=== PATIENT | male | born 1960 | race Caucasian/White ===

== ENCOUNTER → 2022-11-17 10:59 | Outpatient (CLI) | payer BC, SELFPAY ==
--- NOTE | 2022-11-17 | DI.RAD_ITS ---
Exam(s) XR ELBOW LT COMPLETE EXAM: XR ELBOW LT COMPLETE CLINICAL HISTORY: LT ELBOW PAIN, M25.522,ABSCESS,M71.022,LACERATION,FELL,? BONY INJURU. TECHNIQUE: 2D digital imaging was performed of the left elbow. Three images were obtained. AP, lat eral and oblique views were obtained. COMPARISON: No exams were available for comparison FINDINGS: BONES: There are 3 tiny densities adjacent to the lateral epicondyle. They appear well circumscribed and are likely chronic however acute fracture cannot be entirely excluded. No bony destructive lesi on is seen. JOINTS: The elbow is normally aligned. No joint effusion is seen. SOFT TISSUE: There is soft tissue swelling posteriorly. Subcutaneous gas is noted in the soft tissue s posteriorly. IMPRESSION: 1. Densities adjacent to the lateral elbow joint. The appear mostly well corticated suggesting old i njury, but acute fracture cannot be excluded. If there is continued concern a CT scan should be conf irmed obtained for further evaluation. 2. Swelling and subcutaneous air in the posterior soft tissues. No radiopaque foreign bodies. DATA REPOSITORY: RADIATION DOSE DELIVERED:
== END ==
PROVIDERS: Visit Provider Physician Assistant Medical
DX: M71.022 Abscess of bursa, left elbow; M25.522 Pain in left elbow
CPT/HCPCS: 73080

== ENCOUNTER 2022-11-17 14:14 | Emergency (ER) | payer BC, SELFPAY ==
[2022-11-17 14:35] VITALS: BP 119/80; PULSE 97; RESP 18; TEMP 36.9; O2SAT 98
--- NOTE | 2022-11-17 15:21 | ED.GENADUL_ITS ---
Discharge Plan Disposition Patient Disposition: Home Discharge Details Clinical Impression: Septic bursitis, Cellulitis Primary Care Provider: Unknown,Unknown ED Provider: Thania Mendez Home Meds and New Rx's Prescriptions: New cephalexin 500 mg capsule 500 mg PO Q6H 10 Days Qty: 40 0RF levofloxacin 750 mg tablet 750 mg PO DAILY 10 Days Qty: 10 0RF Continued metformin 500 mg tablet 500 mg PO DAILY venlafaxine 75 mg capsule,extended release 24hr 75 mg PO DAILY pantoprazole 40 mg tablet,delayed release (DR/EC) 40 mg PO DAILY losartan 25 mg tablet 25 mg PO DAILY rosuvastatin 10 mg tablet 10 mg PO DAILY bupropion HCl 150 mg tablet extended release 24 hr 150 mg PO DAILY Discharge Instructions Instructions: Cellulitis (ED) Additional Instructions: Warm compresses You are leaving against our medical recommendation, warm compresses, keep your sling in place during the day and refrain from moving your elbow Change your dressing as it becomes saturated Recheck with orthopedics recommended tomorrow and my recommendation was to admit you to the hospital for IV antibiotics and surgery assessment tomorrow, you have gas in your tissue and this can lead to a very serious infection, her recommendation is that we admit you for observation IV antibiotics, you have declined You are aware that this places you at increased risk for worsening infection, loss of limb and even Please be reevaluated at your earliest ability Referrals: Shane Otero MD [ [facility] STAFF PHYSICIAN] - Medical Decision Making <Shira Cohen NP - Last Filed: 11/17/22 16:34> 62-year-old male presents with a red swollen left elbow. He reports he was fishing on Tuesday he fell cutting his elbow on a rock. He was seen at urgent care prior to arrival and had some pus expressed from the area was sent here for further evaluation. He does have surrounding area of erythema measuring a pproximately 7 cm x 5 cm. He does have some tenderness and warmth there is an open laceration. Past medical history includes diabetes, high cholesterol hypertension he does have a history of a previous surgery with pins in 1974 to that elbow. Spoke with Dr. Tee regarding patient he did have x-rays completed prior to arrival which noted some lateral densities to the lateral epicondyle appear chronic however fracture cannot be entirely excluded. There is also some soft tissue swelling posteriorly and some subcutaneous gas noted. CT imaging ordered, CBC CMP wound culture and antibiotics. Differential diagnosis includes but not limited to septic bursitis, infected laceration, less likely septic joint. However we will give a dose of IV antibiotics due to patient's diabetic status. He has no complaints of fever chills or systemic complaints. Medical Records Medical records reviewed: Yes I reviewed the patient's medical records. Medical records narrative: X-rays from earlier today. <SELIN Wilkinson - Last Filed: 11/17/22 22:14> 62-year-old male presents with a red swollen left elbow. He reports he was fishing on Tuesday he fell cutting his elbow on a rock. He was seen at urgent care prior to arrival and had some pus expressed from the area was sent here for further evaluation. He does have surrounding area of erythema measuring approximately 7 cm x 5 cm. He does have some tenderness and warmth there is an open laceration. Past medical history includes diabetes, high cholesterol hypertension he does have a history of a previous surgery with pins in 1974 to that elbow. Spoke with Dr. Tee regarding patient he did have x-rays completed prior to arrival which noted some lateral densities to the lateral epicondyle appear chronic however fracture cannot be entirely excluded. There is also some soft tissue swelling posteriorly and some subcutaneous gas noted. CT imaging ordered, CBC CMP wound culture and antibiotics. Differential diagnosis includes but not limited to septic bursitis, infected laceration, less likely septic joint However we will give a dose of IV antibiotics due to patient's diabetic status. He has no complaints of fever chills or systemic complaints. HPI <Shira Cohen NP - Last Filed: 11/17/22 16:34> General Mode of arrival: ambulatory . Date/Time Provider Initiated Documentation: 11/17/22 14:18 . Limitations to Documentation: no limitations . Information obtained by: patient, RN notes reviewed and old records reviewed . HPI Narrative: 62-year-old male presents with a red swollen left elbow. He reports he was fish ing on Tuesday he fell cutting his elbow on a rock. He was seen at urgent care prior to arrival and had some pus expressed from the area was sent here for further evaluation. He does have surrounding area of erythema measuring approximately 7 cm x 5 cm. He does have some tenderness and warmth there is an open laceration. Past medical history includes diabetes, high cholesterol hypertension he does have a history of a previous surgery with pins in 1974 to that elbow. Related Data Home Medications Medication Instructions Recorded Confirmed bupropion HCl 150 mg 24 hr tablet, 150 mg PO DAILY 11/17/22 11/17/22 extended release cephalexin 500 mg capsule 500 mg PO Q6H 10 days #40 caps 11/17/22 levofloxacin 750 mg tablet 750 mg PO DAILY 10 days #10 tabs 11/17/22 losartan 25 mg tablet 25 mg PO DAILY 11/17/22 11/17/22 metformin 500 mg tablet 500 mg PO DAILY 11/17/22 11/17/22 pantoprazole 40 mg tablet,delayed 40 mg PO DAILY 11/17/22 11/17/22 release rosuvastatin 10 mg tablet 10 mg PO DAILY 11/17/22 11/17/22 venlafaxine 75 mg capsule,extended 75 mg PO DAILY 11/17/22 11/17/22 release 24 hr Previous Rx's Medication Instructions Recorded cephalexin 500 mg capsule 500 mg PO Q6H 10 days #40 caps 11/17/22 levofloxacin 750 mg tablet 750 mg PO DAILY 10 days #10 tabs 11/17/22 Allergies Allergy/AdvReac Type Severity Reaction Status Date / Time No Known Allergies Allergy Unverified 11/17/22 14:33 General Stated Complaint: Orthopedic JESIKA: 3 Review of Systems <Shira Cohen NP - Last Filed: 11/17/22 16:34> All systems reviewed & are unremarkable except as noted in HPI and below Constitutional Constitutional: Reports as per HPI, Denies body ache(s), Denies chills and Denies fever(s) Musculoskeletal Musculoskeletal: Reports as per HPI, Denies myalgias, Reports arthralgias, Reports joint swelling and Reports limited range of motion Integumentary/Breasts Skin/Breast: Reports erythema, Reports skin pain and Reports skin swelling PFS <Shira Cohen NP - Last Filed: 11/17/22 16:34> All Active Problems (Updated 11/17/22 @ 19:36 by SELIN Wilkinson) Septic bursitis (Acute) Cellulitis (Acute) Abscess of bursa of left elbow (Acute) Social History Smoking/Tobacco Use Status: Never Smoking risk assessment performed?: Yes Alcohol Intake: current Alcohol Intake frequency: holidays/special occasions only Alcohol type: beer Drug use: Never Substance use type: does not use Housing: house Do you feel safe at home: Yes Do you feel safe in your relationship?: Yes Exam <Shira Cohen NP - Last Filed: 11/17/22 16:34> Extrem General: normal to inspection Elbow/forearm/wrist images: 1. Erythema and swelling 2. Laceration Course <Shira Cohen NP - Last Filed: 11/17/22 16:34> Vital Signs Vital signs: Vital Signs Temperature 36.9 C 11/17/22 14:35 Pulse 97 H 11/17/22 14:35 Respiratory Rate 18 11/17/22 14:35 Blood Pressure 119/80 11/17/22 14:35 Pulse Oximetry 98 11/17/22 14:35 Temperature 36.9 C 11/17/22 14:35 Temperature Source Oral 11/17/22 14:35 Pulse 97 H 11/17/22 14:35 Respiratory Rate 18 11/17/22 14:35 Blood Pressure 119/80 11/17/22 14:35 Blood Pressure Position Sitting 11/17/22 14:35 Pulse Oximetry 98 11/17/22 14:35 Oxygen Delivery Method Room Air 11/17/22 14:35 Oxygen Flow Rate 0 11/17/22 14:35 Pain Level 4 11/17/22 14:35 Sign Out <Shira Cohen NP - Last Filed: 11/17/22 16:34> Sign Out Data: Sign Out Comment: 62-year-old male with 2-day old wound laceration to left elbow with surrounding erythema and swelling with purulent drainage. Was seen in urgent care prior to arrival has decreased flexion on his elbow. Pending antibiotic administration, imaging and labs. Last updated by Shira Cohen NP at 11/17/22 16:25
--- NOTE | 2022-11-17 15:46 | DI.CT_ITS ---
Exam(s) CT UPPER EXTREMITY LT W EXAM: CT UPPER EXTREMITY LT W CLINICAL HISTORY: Infection, Over olecranon TECHNIQUE: Imaging Protocol: Axial computed tomography images with coronal and sagittal reformatted images were created and reviewed. CONTRAST MATERIAL: Intravenous: Omnipaque 350 Contrast volume:structured data in ml Contrast route:I V - COMPARISON: CR XR ELBOW LT COMPLETE from 11/17/2022 FINDINGS: Soft tissues: There is swelling and edema and some gas within the abnormal tissues of the olecranon f joi area, consistent with infection-probable abscess and cellulitis. There is no radiopaque foreign body. Osseous: No fractures. Corticated densities are seen on the lateral aspect of the joint space. Post eriorly there is no obvious evidence of osteomyelitis. The posterior cortex of the olecranon fossa a ppears intact. No prominent elbow joint effusion evident. IMPRESSION: Prominent soft tissue infectious process in the olecranon bursa region with what appears to be an abs cess at this level which contains gas. There is spreading of inflammatory tissue throughout the subc utaneous tissues of the dorsal forearm and cephalad behind the upper arm for a distance of 9 cm. The re is no associated radiopaque foreign body. No evidence of osteomyelitis. Report called to ER. RADIATION DOSE DELIVERED: 325.51mGy.cm Total DLP DATA REPOSITORY: All CT scans at this facility are submitted to the National Radiology Data Registry (NRDR) Dose Index Registry (DIR) with the [employer] (A[employer]). RADIATION OPTIMIZATION: All CT scans at this facility use at least one of these dose optimization te chniques: automated exposure control; mA and/or kV adjustment per patient size (includes targeted exa ms where dose is matched to clinical indication); or iterative reconstruction.
--- NOTE | 2022-11-17 16:00 | RT.EKG_ITS ---
APPROVED REPORT Exam: Resting ECG Reason for Exam: check qtc Patient Location: E HR:98 bpm ECG Measurements Heart Rate 98 AXIS KS 156 P 15 QRSd 93 QRS 6 QT 334 T 6 QTc 427 Conclusion Sinus rhythm...normal P axis, V-rate 60- 99 sinus rhythm, normal axis, non ischemic
[2022-11-17] MEDS: ceFAZolin 1 GM/50 ML BAG IVPB (16:55)
[2022-11-17 16:58] LABS: ALT 23 U/L (16-63); AST 14 U/L (15-37); Albumin 3.8 g/dL (3.4-5.0); Alkaline Phosphatase 168 U/L (46-116); Anion Gap 9.5 mmol/L (3-11); BUN 19 mg/dL (7-18); Bilirubin, Total 0.6 mg/dL (0.2-1.0); CO2 27.5 mmol/L (21.0-32.0); CREATININE 1.1 mg/dL (0.70-1.30); Calcium 9.1 mg/dL (8.5-10.1); Chloride 102 mmol/L (98-107); Estimated GFR 74.96 (mL/min/1.73m2); Glucose 162 mg/dL (74-106); Potassium 3.8 mmol/L (3.5-5.1); Sodium 139 mmol/L (136-145); Total Protein 8.4 g/dL (6.4-8.2)
[2022-11-17 17:05] LABS: Abs Immature Grans 0.06 10^3/uL (0.0-0.06); Absolute Basophil Count 0.09 10^3/uL (0.0-0.2); Absolute Eosinophil Count 0.02 10^3/uL (0.0-0.7); Absolute Lymphocyte Count 2.35 10^3/uL (1.2-3.4); Absolute Monocyte Count 1.21 10^3/uL (0.1-0.8); Absolute Neutrophil Count 11.63 10^3/uL (1.2-6.7); Basophils % 0.6; Eosinophils % 0.1; HCT 44.8 % (40.0-50.0); HGB 14.7 g/dL (13.5-17.5); Immature Grans % 0.4; Lymphocytes % 15.3; MCH 31.6 pg (27.0-33.0); MCHC 32.8 % (32.0-36.0); MCV 96 fL (80-95); MPV 9.9 fL (8.0-11.0); Monocytes % 7.9; Neutrophils % 75.7; Platelet Count 351 10^3/uL (130-400); RBC 4.65 10^6/uL (4.36-5.78); RDW 13.3 % (11.8-14.1); RDW-SD 47.5 fL; WBC 15.36 10^3/uL (4.4-10.8)
[2022-11-17] MEDS: Omnipaque 350 MG/ML 100 ML BTL IJ (17:14)
[2022-11-17] MEDS: Normal Saline - Diluent 50 ML VIAL IJ (17:15)
[2022-11-17 18:39] LABS: ESR 26 mm/hr (0-20)
[2022-11-17 18:41] LABS: C-Reactive Protein 13.16 mg/dL (0.0-0.3)
--- NOTE | 2022-11-17 18:59 | W.ORTHOCONSU ---
Assessment and Plan Assessment and plan (1) Abscess of bursa of left elbow: Status: Acute Assessment and plan: 62 year old male with Left elbow olecranon bursa abscess with surrounding cellulitis Discussed with ER provider Complete labwork with CBC with diff, ESR, CRP, and HgA1C Attempt bedside drainage through traumatic laceration; spread open, culture, and pack with iodoform, cover with gauze and/or ABD to absorb drainage, secure with kerlex or GAGAN bandage. Medical admission for IV ABX- consider broad spectrum coverage including MRSA (vanco) and water/aquatic organisms (cirpo or levo) NPO after midnight, strict elevation, and rest elbow on padded surface at all times (i.e., pillows) Will assess need for OR I&D tomorrow Unfortunately, patient left AMA from the ER before any interventions were done. As best I can tell, he has not called or returned to the hospital. PFSH All Active Problems (Updated 11/17/22 @ 19:36 by SELIN Wilkinson) Septic bursitis (Acute) Cellulitis (Acute) Abscess of bursa of left elbow (Acute) Social History Smoking/Tobacco Use Status: Never Smoking risk assessment performed?: Yes Alcohol Intake: current Alcohol Intake frequency: holidays/special occasions only Alcohol type: beer Drug use: Never Substance use type: does not use Housing: house Do you feel safe at home: Yes Do you feel safe in your relationship?: Yes Results Last Vital Signs Temp 98.4 F 11/17/22 14:35 Pulse 97 H 11/17/22 14:35 Resp 18 11/17/22 14:35 BP 119/80 11/17/22 14:35 Pulse Ox 98 11/17/22 14:35 Labs 11/17/22 16:34 11/17/22 16:34 Labs: Laboratory Results - last 24 hr 11/17/22 11/17/22 11/17/22 16:34 16:34 16:34 WBC 15.36 H RBC 4.65 Hgb 14.7 Hct 44.8 MCV 96 H MCH 31.6 MCHC 32.8 RDW 13.3 Plt Count 351 MPV 9.9 Immature Gran % 0.4 Neutrophils % 75.7 Lymphocytes % 15.3 Monocytes % 7.9 Eosinophils % 0.1 Basophils % 0.6 Nucleated RBC % 0.0 Absolute Neutrophils 11.63 H Absolute Lymphocytes 2.35 Absolute Monocytes 1.21 H Absolute Eosinophils 0.02 Absolute Basophils 0.09 ESR Sodium 139 Potassium 3.8 Chloride 102 Carbon Dioxide 27.5 Anion Gap 9.5 BUN 19 H Creatinine 1.1 Est GFR (CKD-EPI 2020) 74.96 Glucose 162 H Calcium 9.1 Total Bilirubin 0.6 AST 14 L ALT 23 Alkaline Phosphatase 168 H C-Reactive Protein 13.16 H Total Protein 8.4 H Albumin 3.8 11/17/22 16:34 WBC RBC Hgb Hct MCV MCH MCHC RDW Plt Count MPV Immature Gran % Neutrophils % Lymphocytes % Monocytes % Eosinophils % Basophils % Nucleated RBC % Absolute Neutrophils Absolute Lymphocytes Absolute Monocytes Absolute Eosinophils Absolute Basophils ESR 26 H Sodium Potassium Chloride Carbon Dioxide Anion Gap BUN Creatinine Est GFR (CKD-EPI 2020) Glucose Calcium Total Bilirubin AST ALT Alkaline Phosphatase C-Reactive Protein Total Protein Albumin
[2022-11-17] MEDS: Lidocaine 1% Pres-Free W/EPI 1/200,000 30 ML VIAL IJ (19:13)
[2022-11-17] MEDS: Cephalexin 500 MG CAP, 4 CAPS/BTL PO (19:49)
[2022-11-17] MEDS: levoFLOXacin 500 MG, levoFLOXacin 250 MG 750 MG PO (19:49)
[2022-11-17 19:56] VITALS: BP 131/84; PULSE 100; RESP 18; O2SAT 96
[2022-11-17 20:44] LABS: Hemoglobin A1C 5.8 % (<5.7)
--- NOTE | 2022-11-17 21:25 | ED.PROG_ITS ---
Date of service: 11/17/22 Time of Service: 21:29 Medical Decision Making Care was accepted from [facility] Cohen pending completion of work-up, gas noted until she is on CT scan per radiology interpretation and my review but extensive subcutaneous edema, case discussed with Dr. Otero, recommendation for IV antib iotics and admission [facility] for incision and drainage prior to admission and then surgical consultation tomorrow I did incise and drain the wound after injecting 10 cc of lidocaine with epinephrine An 11 blade was used to open the laceration site and approximately 20 cc of serosanguineous blood-tinged drainage was noted Half inch packing of gauze was applied Levaquin and cefazolin were given in the emergency department and Keflex and Levaquin for home EKG was ordered to be sure QTc was within normal limits Patient has leukocytosis, 15,000, he has no crepitus aside from over the laceration site on his elbow He is afebrile and nontoxic, he is alert, oriented, of decisional capacity Patient is adamantly refusing admission at this time, he will leave AGAINST MEDICAL ADVICE, he is competent to make this decision Orthopedics will be updated Sign Out Sign Out Data: Sign Out Comment: 62-year-old male with 2-day old wound laceration to left elbow with surrounding erythema and swelling with purulent drainage. Was seen in urgent care prior to arrival has decreased flexion on his elbow. Pending antibiotic administration, imaging and labs. Last updated by Shira Cohen NP at 11/17/22 16:25 Discharge Plan Disposition Patient Disposition: Home Discharge Details Clinical Impression: Septic bursitis, Cellulitis Primary Care Provider: Unknown,Unknown ED Provider: Thania Mendez Home Meds and New Rx's Prescriptions: New cephalexin 500 mg capsule 500 mg PO Q6H 10 Days Qty: 40 0RF levofloxacin 750 mg tablet 750 mg PO DAILY 10 Days Qty: 10 0RF Continued metformin 500 mg tablet 500 mg PO DAILY venlafaxine 75 mg capsule,extended release 24hr 75 mg PO DAILY pantoprazole 40 mg tablet,delayed release (DR/EC) 40 mg PO DAILY losartan 25 mg tablet 25 mg PO DAILY rosuvastatin 10 mg tablet 10 mg PO DAILY bupropion HCl 150 mg tablet extended release 24 hr 150 mg PO DAILY Discharge Instructions Instructions: Cellulitis (ED) Additional Instructions: Warm compresses You are leaving against our medical recommendation, warm compresses, keep your sling in place during the day and refrain from moving your elbow Change your dressing as it becomes saturated Recheck with orthopedics recommended tomorrow and my recommendation was to admit you to the hospital for IV antibiotics and surgery assessment tomorrow, you have gas in your tissue and this can lead to a very serious infection, her recommendation is that we admit you for observation IV antibiotics, you have declined You are aware that this places you at increased risk for worsening infection, loss of limb and even Please be reevaluated at your earliest ability Referrals: Shane Otero MD [ [facility] STAFF PHYSICIAN] -
--- NOTE | 2022-11-18 09:05 | NUR.NOTE ---
Nursing Note: Pt called stating he was here last night and left but did not get his sling so he would like to come back in for a sling. I told him that was fine to come in and get it
--- NOTE | 2022-11-18 09:52 | NUR.NOTE ---
Accessed pt chart to find order for a sling. Nursing Note:
--- NOTE | 2022-11-19 13:07 | NUR.NOTE ---
Accessed chart to determine orders for EKG and to determine whether or not one needs to be cancelled. Nursing Note:
== END 2022-11-17 20:24 | disposition home or self-care (01) ==
PROVIDERS: Registered Nurse Emergency; Emergency Provider Physician Assistant
DX: M71.022 Abscess of bursa, left elbow (principal); M71.122 Other infective bursitis, left elbow
CPT/HCPCS: 10061; 36415; 80053; 85652; 87077; 93005; 96365; 99284; 73201; 83036; 85025; 86140; 87070; 87075; 87186; 87205; 93010; J0690; J3490

== ENCOUNTER 2022-12-01 21:07 | Outpatient (REF) | payer BC, SELFPAY ==
[2022-12-01 22:38] LABS: Abs Immature Grans 0.04 10^3/uL (0.0-0.06); Absolute Basophil Count 0.09 10^3/uL (0.0-0.2); Absolute Eosinophil Count 0.08 10^3/uL (0.0-0.7); Absolute Lymphocyte Count 2.91 10^3/uL (1.2-3.4); Absolute Monocyte Count 0.76 10^3/uL (0.1-0.8); Absolute Neutrophil Count 6.78 10^3/uL (1.2-6.7); Basophils % 0.8; Eosinophils % 0.8; HCT 41.7 % (40.0-50.0); HGB 13.9 g/dL (13.5-17.5); Immature Grans % 0.4; Lymphocytes % 27.3; MCH 31.4 pg (27.0-33.0); MCHC 33.3 % (32.0-36.0); MCV 94 fL (80-95); MPV 10.5 fL (8.0-11.0); Monocytes % 7.1; Neutrophils % 63.6; Platelet Count 389 10^3/uL (130-400); RBC 4.42 10^6/uL (4.36-5.78); RDW 12.7 % (11.8-14.1); RDW-SD 43.8 fL; WBC 10.66 10^3/uL (4.4-10.8)
[2022-12-01 22:50] LABS: ALT 27 U/L (16-63); AST 22 U/L (15-37); Albumin 3.8 g/dL (3.4-5.0); Alkaline Phosphatase 138 U/L (46-116); Anion Gap 8.5 mmol/L (3-11); BUN 24 mg/dL (7-18); Bilirubin, Total 0.4 mg/dL (0.2-1.0); CO2 26.5 mmol/L (21.0-32.0); Chloride 104 mmol/L (98-107); Estimated GFR 84.05 (mL/min/1.73m2); Glucose 94 mg/dL (74-106); Potassium 3.9 mmol/L (3.5-5.1); Sodium 139 mmol/L (136-145); TSH (W/Ref FT4) 1.25 uIU/mL (0.36-3.74); Total Protein 7.2 g/dL (6.4-8.2)
== END 2022-12-01 21:08 | disposition home or self-care (01) ==
LOC: NCHCN 21:07
PROVIDERS: PCP Family Medicine; Visit Provider Family Medicine
DX: Z00.00 Encounter for general adult medical examination without abnormal findings (principal); I10 Essential (primary) hypertension; E11.9 Type 2 diabetes mellitus without complications
CPT/HCPCS: 80053; 84443; 85025

== ENCOUNTER 2023-06-06 17:18 | Outpatient (REF) | payer MEDICARE, SELFPAY ==
[2023-06-06 18:32] LABS: COMMENT (LAB VIEW ONLY) 226.81 mg/dL; Microalb ug/mg Crea 6.7 ug/mg Cr
[2023-06-06 18:43] LABS: Hemoglobin A1C 5.7 % (<5.7)
== END 2023-06-06 17:19 | disposition home or self-care (01) ==
LOC: NCHCN 17:18
PROVIDERS: PCP Family Medicine; Visit Provider Family Medicine
DX: E11.9 Type 2 diabetes mellitus without complications (principal)
CPT/HCPCS: 82043; 82570; 83036

== ENCOUNTER → 2023-07-28 13:53 | Outpatient (BNVA) | payer MEDICARE, SELFPAY | PROVIDERS: PCP Family Medicine; Referring Provider Family Medicine; Visit Provider Physical Therapy Assistant | DX: Z12.11 Encounter for screening for malignant neoplasm of colon (principal); R13.10 Dysphagia, unspecified | CPT/HCPCS: 99213 ==

== ENCOUNTER 2023-09-02 08:59 | Day surgery (SDC) | payer MEDICARE, SELFPAY ==
--- NOTE | 2023-09-01 19:57 | PDOC.DSDIS_ITS ---
Date of service: 09/02/23 Time of Service: 11:05 Discharge Plan Disposition Patient Disposition: Home Condition: Good Discharge Details Reason For Visit: screening colonoscopy and EGD Attending Provider: Diony Clay Primary Care Provider: Blaine Najera Home Meds and New Rx's Prescriptions: Continued metformin 500 mg tablet 500 mg PO BID pravastatin 20 mg tablet 20 mg PO DAILY loratadine 10 mg tablet 10 mg PO DAILY cholecalciferol (vitamin D3) 125 mcg (5,000 unit) capsule 125 mcg PO DAILY pantoprazole 40 mg tablet,delayed release (DR/EC) 40 mg PO DAILY losartan 25 mg tablet 25 mg PO DAILY venlafaxine 75 mg capsule,extended release 24hr 225 mg PO DAILY Discontinued bisacodyl [Dulcolax (bisacodyl)] 5 mg tablet,delayed release (DR/EC) 5 mg PO ONCE Qty: 4 0RF polyethylene glycol 3350 17 gram/dose powder 17 g PO DAILY Qty: 238 0RF Discharge Instructions Instructions: Diverticulosis (GEN), Colorectal Polyps (GEN), Diverticulosis Diet (GEN) Additional Instructions: Evens, we were able to complete your upper and lower endoscopies today without any difficulty. With regards to the upper endoscopy, there does appear to be a little bit of dilation of the esophagus, without any specific stricture or narrowing point. Some of the features seem consistent with something called achalasia, which occurs when the lower esophageal sphincter feels to relax, and food that is being swallowed can propulse down into the stomach appropriately. I will take the liberty of ordering a barium swallow test, which is a type of x- ray that can be performed in the next few weeks. That can help support the diagnosis. If that appears to be the case, then I would recommend follow-up down at [facility] to meet with her gastroenterology specialists for different treatment options that may be available if it is the case that you have achalasia. You have some polyps within your stomach. This is very common for patients that are taking proton pump inhibitor medication such as pantoprazole. They do not appear to be worrisome. However, he did have 1 polyp that was out of place. I did remove this today, and will be sent off for testing. With regards to the colonoscopy, I did find 2 polyps. Both were quite small and I removed them both today. Similar to the polyp with the stomach, this will also be sent off for testing. Once I have all those results I will be in touch. 1. If tolerated, consume a soft, low fiber diet for 1-2 days. [address] not drive, drink alcohol, operate machinery, make critical decisions, or do activities that require coordination or balance for 24 hours. 3. Because air was put into your colon during the procedure, expelling air from your rectum (passing gas or farting) is normal. 4. You may not have a bowel movement for 1-3 days because of the colonoscopy prep. This is normal. 5. You may experience a sore throat for 24 to 48 hours. You may use throat lozenges or gargle with warm salt water to relieve the discomfort. 6. Because air was put into your stomach during the procedure, you may experience some belching. 7. Go directly to the emergency room if you notice any of the following: Develop chills (warm to touch), or if you have a thermometer and your temperature is above 101 Difficulty breathing or difficultly swallowing Persistent vomiting Severe abdominal pain, other than gas cramps Severe chest pain Black, tarry stools Any bleeding ? exceeding one tablespoon 8. Call your physician if the site where your intravenous was started becomes red, swollen, painful, and warm to touch. 9. Your physician has reviewed your pre-procedure medications. Please continue to take those medications as previously ordered. You will be given specific information/education regarding any changes to your medications before leaving. Activity:: Activity as Tolerated Diet:: As Tolerated Discharge Orders Discharge Orders: Discharge Order (Routine); Ordered 09/01/23 Ordered By: Diony Clay DS: Diagnosis Discharge Diagnosis (1) Encounter for screening colonoscopy: Status: Acute Asessment and Plan: Dilated esophagus on EGD, without signs of worrisome reflux. Recommend follow- up barium swallow to rule out achalasia; follow-up on colonoscopy polypectomy results
--- NOTE | 2023-09-01 19:59 | W.PM.ENDDOP ---
Date of service: 09/02/23 Time of Service: 11:08 Endoscopy Report DATE OF PROCEDURE: 09/02/23 PRE-OP DIAGNOSIS: Dysphagia and screening colonoscopy POST-OP DIAGNOSIS: other (Gastric polyps, colorectal polyps, diverticulosis) PROCEDURE: EGD and colonoscopy SURGEON: Diony Clay ANESTHESIA TYPE: General:No Airway ESTIMATED BLOOD LOSS: 10 PATHOLOGY: other (Gastric antral polyp, biopsies of gastric antrum and body; 0.25 cm colon polyp at 85 cm, 0.25 cm colon polyp at 25 cm) COMPLICATIONS: None DISPOSITION: same day INDICATIONS: Freddie is a 63 year old with worsening dysphagia. He is also due for his next screening colonoscopy PREP: Miralax/Dulcolax PROCEDURE START TIME: 10:30 PROCEDURE END TIME: 10:57 COLONOSCOPY RETRACTION TIME: 10 FINDINGS: Gastric antral polyp, gastric fundic land polyps, dilated esophagus; 0.5 cm colon polyp at 85 cm, 0.25 cm colon polyp at 25 PROCEDURE DESCRIPTION: After the initiation of anesthesia, and with the assistance of a bite block, I advanced a standard gastroscope through the mouth past the hypopharynx and into the esophagus.? Under the direct vision of the scope, I advanced down the esophagus towards the stomach.? The upper middle, and lower esophagus appeared dilated. Mucosa was normal and healthy appearing. Narrowband imaging was used to assist with analysis. GE junction and Z-line were encountered at 36 cm from the incisors. The Z-line was regular, there was no evidence of any Mcdaniel's esophagus. Advance the camera down into the stomach and insufflated until the rugae were obliterated. There were numerous polyps within the main body of the stomach. Again, narrowband imaging was used here. None of these polyps appear particularly pathologic. There was, however, a single polyp found within the gastric antrum. This was removed with cold forceps without any issue. I advanced the camera down across the pylorus into the duodenum which was totally normal. Next, I brought the camera back up into the stomach examined at 1 last time. Retroflexion was performed. I did not see any evidence of any hiatal hernia. The stomach was then emptied, and the camera was brought back up to the esophagus. Several passes were taken across the lower esophagus to rule out webs, stricture, or any other pathology here. I did not see any evidence of any type of obstructive pathophysiology. Again, however, the esophagus itself did seem a little bit dilated along its length. The camera was then brought out along the length of the esophagus completely emptying it. Next, Evens was rolled in the left lateral decubitus position. Great care was taken to pad and support him appropriately. I began by performing an external anorectal exam.? Perineum and skin were normal, as was the anal verge.? There was no evidence of external hemorrhoids.? Next, I performed a digital rectal exam.? I did not appreciate any abnormal findings.? Next, I advanced a colonoscope into the rectal vault.? I performed retroflexion.? There are grade 1 internal hemorrhoids.? Using insufflation, I then advanced the colonoscope beyond the rectal folds and into the sigmoid colon before advancing towards the cecum.? There is sigmoid diverticulosis.? The scope was noted to be in the cecum by identification of the ileocecal valve and appendiceal orifice.? I then began withdrawing the colonoscope using repeated irrigation as necessary for full evaluation of the colonic mucosa. Around 85 cm from the anal verge I identified a 0.25 cm polyp. ?It appeared flat in character. ?I was able to remove this with a cold forceps. ?I examined the site, and there was minimal bleeding. ?Once this was completed, I continued to withdraw the scope and examine the remainder of the colonic mucosa. Found another polyp at 25 cm from the anal verge. This was also 0.25 cm and flat. This was also removed with cold forceps without any issues. ?Once the scope was withdrawn to the level of the rectum, great care was taken to examine portions of the rectal folds.? Finally, the scope was withdrawn and the patient was brought to the same-day surgery recovery unit as the anesthetic wore off. ?The findings and instructions were shared with the patient prior to discharge. [place] bowel prep score from left rate was 3, 3, 3
[2023-09-02 09:37] VITALS: BP 115/88; PULSE 86; RESP 16; TEMP 36.4; O2SAT 98
[2023-09-02] MEDS: Lactated Ringers 1,000 ML 80 ML IV (09:40)
--- NOTE | 2023-09-02 10:16 | W.ANESPRE ---
General Info Date of Service Date Performed: 09/02/23 Height: 5 ft 9 in Weight: 89.811 kg Body Mass Index (BMI): 29.2 Surgical Procedure: Operation Date: 09/02/23 10:50 Proposed Procedure Side Surgeon p Colonoscopy/Gastroscopy Diony Clay MD Meds Allergies and Home Medications Allergies Allergy/AdvReac Type Severity Reaction Status Date / Time No Known Allergies Allergy Verified 09/02/23 09:13 Home Medication Medication Instructions Recorded losartan 25 mg tablet 25 mg PO DAILY 11/17/22 pantoprazole 40 mg tablet,delayed 40 mg PO DAILY 11/17/22 release cholecalciferol (vitamin D3) 125 125 mcg PO DAILY 07/15/23 mcg (5,000 unit) capsule loratadine 10 mg tablet 10 mg PO DAILY 07/15/23 metformin 500 mg tablet 500 mg PO BID 07/15/23 pravastatin 20 mg tablet 20 mg PO DAILY 07/15/23 venlafaxine 75 mg capsule,extended 225 mg PO DAILY 07/28/23 release 24 hr Current Visit Medications: Current Medications Generic Name Dose Route Start Last Admin Trade Name Freq PRN Reason Stop Dose Admin Hyoscyamine Sulfate 0.125 mg 09/01/23 19:58 Hyoscyamine 0.125 Mg Sl/Oral/Chew SL 10/01/23 19:57 DIRECTED PRN Ringer's Solution 1,000 mls @ 80 mls/hr 09/02/23 06:00 09/02/23 09:40 IV 09/02/23 23:59 80 mls/hr INFUSION TONI Administration IV Miscellaneous Supplies 1 each 09/02/23 06:00 Iv Access IV 09/02/23 23:59 DIRECTED TONI Ondansetron HCl 4 mg 09/01/23 19:58 Ondansetron 4 Mg/2 Ml Vial IVP 10/01/23 19:57 Q4H PRN PRN Nausea / Vomiting Sodium Chloride 0 ml 09/02/23 06:00 Normal Saline Flush 10 Ml Syr IV 09/02/23 23:59 PRN PRN Sodium Chloride 0 ml 09/02/23 06:00 Normal Saline 10 Ml Vial IJ 09/02/23 23:59 DIRECTED PRN Sterile Water 0 ml 09/02/23 06:00 Water,Injection,Sterile 10 Ml Vial IJ 09/02/23 23:59 DIRECTED PRN PFSH Active Problems Active Problems: Problem Status Onset Code Encounter for screening colonoscopy Z12.11 Abscess of bursa of left elbow M71.022 Medical History Medical History Type 2 diabetes mellitus Fatigue Lyme disease Hyperlipidemia Essential hypertension Vitamin B deficiency Vitamin D deficiency GERD (gastroesophageal reflux disease) Tobacco Smoking/Tobacco Use Status: Never Alcohol Alcohol Intake: former Substance Use Substance use: Never Substance use type: does not use Vital Signs and Lab Results Vital Signs Most Recent Vital Signs in EMR: Most Recent Vital Signs Temp Pulse Resp BP Pulse Ox 36.4 C L 86 16 115/88 98 09/02/23 09:37 09/02/23 09:37 09/02/23 09:37 09/02/23 09:37 09/02/23 09:37 Point of Care Results Point of Care Results: Finger Stick Blood Glucose 101 09/02/23 09:32 Lab Results Blood Type / Crossmatch: No Data to Display Complete Blood Count: No Data to Display Complete Metabolic Panel: No Data to Display Liver Function Panel: No Data to Display Coagulation Panel: No Data to Display Cardiac Panel: No Data to Display Arterial Blood Gas: No Data to Display Venous Blood Gas: No Data to Display Pancreas Panel: No Data to Display Thyroid Panel: No Data to Display Infectious Disease: No Data to Display Blood Cultures: No Data to Display Toxicology Panel: No Data to Display Anesthesia Assessment and Plan Anesthesia History Personal History: No History of Anesthesia Complications Family History: No Family History of Anesthesia Complications Exercise Tolerance Exercise Tolerance: Metabolic Equivalents>4 Pertinent Negatives Pertinent Negatives: No Symptoms of GERD Cardiac & Pulmonary Exam Cardiac Exam: Normal S1/S2 Heart Sounds Pulmonary Exam: Clear Bilateral Breath Sounds Implantable Cardiac Device Does patient have a Pacemaker or an ICD?: No Airway Exam Known Difficult Airway: No Mallampati Class: 2 Mouth Opening: Normal (> 3cm) Thyromental Distance: Greater than 3 cm Neck Range of Motion: Full ROM Neck Circumference: Normal Teeth Condition: Normal Dentition ASA Classification ASA Score: ASA 2 Emergency Case?: No NPO Status NPO Status: NPO Clears >2 hours, Solids >8 hours Anesthesia Plan Resuscitation Status: Full Code Anesthesia Technique: General Anesthesia Airway Planned: Natural Airway Monitors Used: Standard Monitors
[2023-09-02 10:17] VITALS: BMI 29.2
--- NOTE | 2023-09-02 10:33 | STOM_PTH ---
PATIENT: Evens Morrison LOC: [facility] U#:[id number] AGE/SX: 63/M ROOM: RE09/02/[address]: Diony Clay MD : 1960 BED: DIS: 09/02/2023 SPEC #: [id number] RECD: 09/02/23 16:56 STATUS: VERONIKA RE #: [id number] BIJAN: 09/02/23 10:[address]: Diony Clay DEPT: Surgical Specimen RECD BY: Thania Logan ENTERED: 09/02/23 16:58 SP TYPE: STOMACH OTHR DR: Blaine Najera Tissues: 1 - STOMACH BIOPSY 2 - STOMACH BIOPSY 3 - STOMACH BIOPSY 4 - BIOPSY BOWEL 5 - BIOPSY BOWEL Procedures: GROSS AND MICRO LEVEL 4 Comments: [id number]
[2023-09-02 11:00] VITALS: BP 86/51; PULSE 81; RESP 16; TEMP 36.2; O2SAT 94
--- NOTE | 2023-09-02 11:24 | W.ANESPOSTOP ---
Postoperative Evaluation Date, Time and Location Date Performed: 09/02/23 Time Performed: :24 Patient Location: Day Surgery Unit Vital Signs Most Recent Imported Vital Signs: Most Recent Vital Signs Temp Pulse Resp BP Pulse Ox 36.2 C L 81 16 86/51 L 94 09/02/23 11:00 09/02/23 11:00 09/02/23 11:00 09/02/23 11:00 09/02/23 11:00 Pain Score Most Recent Pain Score: Most Recent Pain Score Pain Level 0 09/02/23 11:00 Assessment Mental Status: Awake (Alert & Oriented to Patient Baseline) Airway and Respiratory Function: Patent airway with normal (patient baseline) respiratory exam Cardiovascular Function: Hemodynamically Stable Hydration Status: Adequately Hydrated Nausea & Vomiting: No Nausea or Vomiting Pain: Pt. Denies Any Pain Peripheral Nerve Block: Patient did not receive a nerve block
[2023-09-02 11:30] VITALS: BP 115/85; PULSE 79; RESP 18; TEMP 36.6; O2SAT 98
== END 2023-09-02 12:12 | disposition home or self-care (01) ==
LOC: SUR 08:59
PROVIDERS: PCP Family Medicine; Visit Provider Surgery
PROC: (CPT 45380; principal; 2023-09-02 10:45)
DX: Z12.11 Encounter for screening for malignant neoplasm of colon (principal); K63.5 Polyp of colon; K57.30 Diverticulosis of large intestine without perforation or abscess without bleeding; K64.0 First degree hemorrhoids; R13.10 Dysphagia, unspecified; K31.7 Polyp of stomach and duodenum
CPT/HCPCS: 45380; 43239; 88305; J2001; J2704

== ENCOUNTER 2023-12-15 20:40 | Outpatient (REF) | payer MEDICARE, SELFPAY ==
[2023-12-15 22:12] LABS: Abs Immature Grans 0.02 10^3/uL (0.0-0.06); Absolute Basophil Count 0.08 10^3/uL (0.0-0.2); Absolute Eosinophil Count 0.11 10^3/uL (0.0-0.7); Absolute Lymphocyte Count 2.72 10^3/uL (1.2-3.4); Absolute Monocyte Count 0.92 10^3/uL (0.1-0.8); Absolute Neutrophil Count 5.51 10^3/uL (1.2-6.7); Basophils % 0.9 %; Eosinophils % 1.2 %; HCT 45.1 % (40.0-50.0); HGB 14.9 g/dL (13.5-17.5); Immature Grans % 0.2 %; Lymphocytes % 29.1 %; MCH 31.5 pg (27.0-33.0); MCV 95 fL (80-95); MPV 11.1 fL (8.0-11.0); Monocytes % 9.8 %; Neutrophils % 58.8 %; Platelet Count 300 10^3/uL (130-400); RBC 4.73 10^6/uL (4.36-5.78); RDW 12.8 % (11.8-14.1); RDW-SD 45.2 fL; WBC 9.36 10^3/uL (4.4-10.8)
[2023-12-15 22:37] LABS: ALT 27 U/L (16-63); AST 23 U/L (15-37); Albumin 3.7 g/dL (3.4-5.0); Alkaline Phosphatase 130 U/L (46-116); Anion Gap 12.1 mmol/L (3-11); BUN 26 mg/dL (7-18); Bilirubin, Total 0.25 mg/dL (0.2-1.0); CO2 25.9 mmol/L (21.0-32.0); CREATININE 0.8 mg/dL (0.70-1.30); Calcium 9.9 mg/dL (8.5-10.1); Chloride 106 mmol/L (98-107); Estimated GFR 98.21 (mL/min/1.73m2); Glucose 72 mg/dL (74-106); LDL CHOLESTEROL 96 mg/dL (<100); Potassium 4.4 mmol/L (3.5-5.1); Sodium 144 mmol/L (136-145); Total Protein 7.4 g/dL (6.4-8.2)
== END 2023-12-15 20:41 | disposition home or self-care (01) ==
LOC: NCHCN 20:40
PROVIDERS: PCP Family Medicine; Visit Provider Family Medicine
DX: I10 Essential (primary) hypertension (principal); E78.5 Hyperlipidemia, unspecified
CPT/HCPCS: 80053; 83721; 85025

== ENCOUNTER 2024-05-08 13:07 | Outpatient (REF) | payer MEDICARE, SELFPAY ==
[2024-05-08 14:46] LABS: COMMENT (LAB VIEW ONLY) 204.55 mg/dL; Microalb ug/mg Crea 20.2 ug/mg Cr
== END 2024-05-08 13:08 | disposition home or self-care (01) ==
LOC: NCHCN 13:07
PROVIDERS: PCP Family Medicine; Visit Provider Family Medicine
DX: E11.9 Type 2 diabetes mellitus without complications (principal)
CPT/HCPCS: 82043; 82570

== ENCOUNTER 2024-12-13 15:24 | Outpatient (REF) | payer MEDICARE, SELFPAY ==
[2024-12-13 16:27] LABS: HCT 44.6 % (40.0-50.0); HGB 14.9 g/dL (13.5-17.5); MCH 31.7 pg (27.0-33.0); MCHC 33.4 % (32.0-36.0); MCV 95 fL (80-95); MPV 10.4 fL (8.0-11.0); Platelet Count 340 10^3/uL (130-400); RBC 4.70 10^6/uL (4.36-5.78); RDW 12.7 % (11.8-14.1); RDW-SD 44.9 fL; WBC 8.52 10^3/uL (4.4-10.8)
[2024-12-13 16:45] LABS: ALT 27 U/L (16-63); AST 19 U/L (15-37); Albumin 3.7 g/dL (3.4-5.0); Alkaline Phosphatase 152 U/L (46-116); Anion Gap 6.6 mmol/L (3-11); BUN 23 mg/dL (7-18); Bilirubin, Total 0.3 mg/dL (0.2-1.0); CO2 29.4 mmol/L (21.0-32.0); Calcium 9.2 mg/dL (8.5-10.1); Chloride 107 mmol/L (98-107); Estimated GFR 97.61 (mL/min/1.73m2); Glucose 70 mg/dL (74-106); Potassium 4.5 mmol/L (3.5-5.1); Sodium 143 mmol/L (136-145); Total Protein 7.2 g/dL (6.4-8.2)
== END 2024-12-13 15:25 | disposition home or self-care (01) ==
LOC: NCHCN 15:24
PROVIDERS: PCP Family Medicine; Visit Provider Family Medicine
DX: E11.9 Type 2 diabetes mellitus without complications (principal)
CPT/HCPCS: 80053; 85027